=== PATIENT | female | born 1990 | race Hispanic/Latino ===

== ENCOUNTER 2019-07-29 00:51 | Emergency (ER) | payer SELFPAY ==
--- OUTSIDE RECORDS SUMMARY | 2019-07-29 00:53 | XMS REPORT ---
:1990 Author Organization [facility] t Address [address] [place] [address] Care Team Providers Name Role Phone Unavailable Unavailable Unavailable Problems This patient has no known problems. Allergies, Adverse Reactions, Alerts This patient has no known allergies or adverse reactions. Medications This patient has no known medications. Procedures This patient has no known procedures. Results This patient has no known results.
[2019-07-29] MEDS ORDERED: TETRACAINE HCL 0.5% 4ML OPTH ONE (01:49)
[2019-07-29] MEDS ORDERED: FLUORESCEIN SODIUM 1 MG/WRAP ONE (01:49)
--- NOTE | 2019-07-29 02:16 | EDPHYS ---
Physician Documentation [facility] Name: Karolyn Andrews Age: 28 yrs Sex: Female : 1990 Arrival Date: 07/29/2019 Time: 00:53 Bed 8 Private MD: ED Physician Irvin Saini HPI: 07/28 02:13 This 28 yrs old Female presents to ER via Ambulatory with complaints of Eye tw4 Pain. 02:13 The patient is experiencing pain, redness, The patient sustained an abrasion, to the tw4 left eye. Onset: The symptoms/episode began/occurred 2 week(s) ago. Duration: the symptoms are continuous. Aggravated by nothing. Alleviated by nothing. Associated signs and symptoms: Pertinent positives: None. Pertinent negatives: None. Patient wears soft contacts. Severity of symptoms: At their worst the symptoms were moderate in the emergency department the symptoms are unchanged. The patient has not experienced similar symptoms in the past. 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 - Social history:: Smoking status: Patient denies any tobacco usage or history of. ROS: 02:13 Cardiovascular: Negative for chest pain, palpitations, and edema, Respiratory: Negative tw4 for shortness of breath, cough, wheezing, and pleuritic chest pain, Abdomen/GI: Negative for abdominal pain, nausea, vomiting, diarrhea, and constipation, Back: Negative for injury and pain, MS/Extremity: Negative for injury and deformity, Skin: Negative for injury, rash, and discoloration, Neuro: Negative for headache, weakness, numbness, tingling, and seizure. 02:13 Eyes: Positive for pain, visual disturbance. Exam: 02:13 Constitutional: This is a well developed, well nourished patient who is awake, alert, tw4 and in no acute distress. 02:13 Eyes: Periorbital structures: appear normal, Pupils: equal, round, and reactive to light and accomodation, Extraocular movements: intact throughout, Conjunctiva: injected, in the left eye, Corneas: abrasion, that is small, at 3 o'clock, a fluorescein strip employed to appreciate the findings, Sclera: no appreciated abnormality, Anterior chamber: normal. Vital Signs: 01:08 BP 87 / 59; Pulse 94; Resp 16; Temp 98.6; Pulse Ox 96% on R/A; Weight 54.43 kg; Height vc 5 ft. 0 in. (152.40 cm); Pain 10/10; 02:05 BP 91 / 55; Pulse 82; Resp 16; Temp 98.6(O); Pulse Ox 100% on R/A; jb4 02:38 BP 93 / 57; Pulse 82; Resp 16; Pulse Ox 98% on R/A; Pain 4/10; jb4 01:08 Body Mass Index 23.44 (54.43 kg, 152.40 cm) vc Visual Acuity: 01:30 Left Eye Visual acuity 20/200, Pupil size 4 mm, Normal, React To Light, Reactive To jb4 Accomodation; Right Eye Visual acuity 20/100, Pupil size 4 mm, Normal, React To Light, Reactive To Accomodation; Both Eyes Visual acuity 20/50; Without Lenses; MDM: 01:28 Patient medically screened. tw4 02:13 Differential diagnosis: Corneal abrasion of left eye. Corneal ulcer of Foreign body in. tw4 Data reviewed: vital signs, nurses notes. Counseling: I had a detailed discussion with the patient and/or guardian regarding: the historical points, exam findings, and any diagnostic results supporting the discharge/admit diagnosis. 07/28 01:50 Order name: Eye Tray; Complete Time: 01:50 jb4 Administered Medications: 01:48 Drug: Tetracaine Drops 0.5 % 2 drops Route: Ophthalmic; Site: left eye; jb4 02:10 Follow up: Response: No adverse reaction; Pain is decreased jb4 02:05 Drug: Fluorescein Strip 1 strip Route: Ophthalmic; Site: left eye; jb4 02:30 Follow up: Response: No adverse reaction jb4 02:30 Drug: Gentamicin Drops 0.3 % 2 drops Route: Ophthalmic; Site: left eye; jb4 02:41 Follow up: Response: No adverse reaction jb4 Disposition: 07/29/19 02:15 Discharged to Home. Impression: Injury of conjunctiva and corneal abrasion without foreign body, left eye. - Condition is Stable. - Discharge Instructions: Corneal Abrasion, [id number]. - Prescriptions for Gentamicin 0.3 % Ophthalmic Drops - instill 1 drop by OPHTHALMIC route every 4 hours for 7 days; 1 bottle. - Medication Reconciliation Form, Thank You Letter, Antibiotic Education, Prescription Opioid Use form. - Follow up: Private Physician; When: Upon discharge from the Emergency Department; Reason: Recheck today's complaints, Continuance of care, Re-evaluation by your physician. Follow up: Anand Molina MD; When: Upon discharge from the Emergency Department; Reason: Recheck today's complaints, Continuance of care, Re-evaluation by your physician. - Problem is new. - Symptoms are unchanged. Signatures: Shamir Mckeon RN RN jb4 Irvin Saini MD MD tw4 Jessy Klein RN RN vc Corrections: (The following items were deleted from the chart) 02:42 02:15 07/29/2019 02:15 Discharged to Home. Impression: Injury of conjunctiva and jb4 corneal abrasion without foreign body, left eye. Condition is Stable. Forms are Medication Reconciliation Form, Thank You Letter, Antibiotic Education, Prescription Opioid Use. Follow up: Private Physician; When: Upon discharge from the Emergency Department; Reason: Recheck today's complaints, Continuance of care, Re-evaluation by your physician. Follow up: Anand Molina; When: Upon discharge from the Emergency Department; Reason: Recheck today's complaints, Continuance of care, Re-evaluation by your physician. Problem is new. Symptoms are unchanged. tw4
--- NOTE | 2019-07-29 02:16 | ER ---
Nurse's Notes [facility] Name: Karolyn Andrews Age: 28 yrs Sex: Female : 1990 Arrival Date: 07/29/2019 Time: 00:53 Bed 8 Private MD: Diagnosis: Injury of conjunctiva and corneal abrasion without foreign body, left eye Presentation: 07/28 01:08 Chief complaint: Patient states: "I think I have a contact in my left eye, I don't vc think it is pink eye because its been 2 weeks. I can't even see out of it because it hurts so bad.". Coronavirus screen: Proceed with normal triage. Patient denies a cough. Patient reports shortness of breath or difficulty breathing. Patient denies measured and/or subjective temperature greater than 100.4F prior to today's visit. Patient denies travel on a cruise ship or to a country the [facility] currently lists as an affected area. Patient denies contact with known and/or suspected case of COVID-19. Ebola Screen: No symptoms or risks identified at this time. Mechanism of Injury: No Mechanism of Injury. The patient reports a positive loss of vision. The patient's loss of vision began gradually 2 weeks ago. Initial Sepsis Screen: Does the patient meet any 2 criteria? No. Patient's initial sepsis screen is negative. Does the patient have a suspected source of infection? No. Patient's initial sepsis screen is negative. Risk Assessment: Do you want to hurt yourself or someone else? Patient reports no desire to harm self or others. Onset of symptoms is unknown. 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 - Social history:: Smoking status: Patient denies any tobacco usage or history of. Screenin:17 Abuse screen: Denies threats or abuse. Nutritional screening: No deficits noted. vc Tuberculosis screening: No symptoms or risk factors identified. Fall Risk None identified. Assessment: 01:30 General: Appears in no apparent distress. uncomfortable, Behavior is calm, cooperative, jb4 appropriate for age. Pain: Complains of pain in left eye Pain does not radiate. Pain currently is 10 out of 10 on a pain scale. Quality of pain is described as burning, Pain began 2 weeks ago Is continuous. Neuro: Level of Consciousness is awake, alert, obeys commands, Oriented to person, place, time, situation. Cardiovascular: Patient's skin is warm and dry. Respiratory: Airway is patent Respiratory effort is even, unlabored, Respiratory pattern is regular, symmetrical. GI: No signs and/or symptoms were reported involving the gastrointestinal system. : No signs and/or symptoms were reported regarding the genitourinary system. EENT: Eyes Left eye appears reddened. . Sclera/Cornea are clear in outer aspect of conjuctiva of left eye are reddened in iris of left eye and inner aspect of conjunctiva of left eye. Derm: Skin is intact, Skin is pink, warm \\T\\ dry. Musculoskeletal: Circulation, motion, and sensation intact. Range of motion: intact in all extremities. 02:20 Reassessment: Patient appears in no apparent distress at this time. Patient and/or jb4 family updated on plan of care and expected duration. Pain level reassessed. Patient is alert, oriented x 3, equal unlabored respirations, skin warm/dry/pink. Pt reports feeling weak and light headed. Reports feeling short of breath and having chest pain for the past two weeks. Reports feeling weak and light headed tonight. Request to be examined in ED. Provider notified, no new orders at this time. 02:38 Reassessment: Patient appears in no apparent distress at this time. Patient and/or jb4 family updated on plan of care and expected duration. Pain level reassessed. Patient is alert, oriented x 3, equal unlabored respirations, skin warm/dry/pink. PT currently denying dizziness, SOB, chest pain, or weakness. Reports vision in left eye has cleared up some and has improved. Lungs CTA MERVIN. PT asked if she felt well enough to go home or if she needed to stay, pt states " No my ride is here, I am okay. I think I am fine, I am going to go home and go see my doctor." Verbalized understanding of d/c and follow up instructions. Ambulated out of ED with steady gait. Patient states feeling better. Vital Signs: 01:08 BP 87 / 59; Pulse 94; Resp 16; Temp 98.6; Pulse Ox 96% on R/A; Weight 54.43 kg; Height vc 5 ft. 0 in. (152.40 cm); Pain 10/10; 02:05 BP 91 / 55; Pulse 82; Resp 16; Temp 98.6(O); Pulse Ox 100% on R/A; jb4 02:38 BP 93 / 57; Pulse 82; Resp 16; Pulse Ox 98% on R/A; Pain 4/10; jb4 01:08 Body Mass Index 23.44 (54.43 kg, 152.40 cm) vc Visual Acuity: 01:30 Left Eye Visual acuity 20/200, Pupil size 4 mm, Normal, React To Light, Reactive To jb4 Accomodation; Right Eye Visual acuity 20/100, Pupil size 4 mm, Normal, React To Light, Reactive To Accomodation; Both Eyes Visual acuity 20/50; Without Lenses; ED Course: 00:53 Patient arrived in ED. cl3 01:16 Triage completed. vc 01:17 Arm band placed on right wrist. vc 01:28 Irvin Saini MD is Attending Physician. tw4 01:30 Patient has correct armband on for positive identification. Bed in low position. Call jb4 light in reach. Side rails up X 1. Pulse ox on. NIBP on. 01:34 Shamir Mckeon, RN is Primary Nurse. jb4 02:00 Assist provider with eye exam of left eye. using fluorescein stain, Performed by [facility] Irvin Saini MD Patient tolerated well. 02:15 Anand Molina MD is Referral Physician. tw4 02:41 Patient did not have IV access during this emergency room visit. 4 Administered Medications: 01:48 Drug: Tetracaine Drops 0.5 % 2 drops Route: Ophthalmic; Site: left eye; jb4 02:10 Follow up: Response: No adverse reaction; Pain is decreased jb4 02:05 Drug: Fluorescein Strip 1 strip Route: Ophthalmic; Site: left eye; jb4 02:30 Follow up: Response: No adverse reaction jb4 02:30 Drug: Gentamicin Drops 0.3 % 2 drops Route: Ophthalmic; Site: left eye; jb4 02:41 Follow up: Response: No adverse reaction jb4 Outcome: 02:15 Discharge ordered by . tw4 02:41 Discharged to home ambulatory, with friend. jb4 02:41 Condition: stable 02:41 Discharge instructions given to patient, Instructed on discharge instructions, follow up and referral plans. medication usage, Demonstrated understanding of instructions, follow-up care, medications, Prescriptions given X 1. 02:42 Patient left the ED. jb4 Signatures: Shamir Mckeon RN RN stu4 Irvin Saini MD MD tw4 Aletha Tidwell cl3 Jessy Klein RN RN vc Corrections: (The following items were deleted from the chart) 02:24 02:20 Reassessment: Patient appears in no apparent distress at this time. Patient jb4 and/or family updated on plan of care and expected duration. Pain level reassessed. Patient is alert, oriented x 3, equal unlabored respirations, skin warm/dry/pink. Pt reports feeling weak and light headed. Reports feeling short of breath and having chest pain for the past two weeks. Request to be examined in ED. Provider notified. jb4 02:58 02:20 Reassessment: Patient appears in no apparent distress at this time. Patient jb4 and/or family updated on plan of care and expected duration. Pain level reassessed. Patient is alert, oriented x 3, equal unlabored respirations, skin warm/dry/pink. Pt reports feeling weak and light headed. Reports feeling short of breath and having chest pain for the past two weeks. Reports feeling weak and light headed tonight. Request to be examined in ED. Provider notified. jb4 02:58 02:38 Reassessment: Patient appears in no apparent distress at this time. Patient jb4 and/or family updated on plan of care and expected duration. Pain level reassessed. Patient is alert, oriented x 3, equal unlabored respirations, skin warm/dry/pink. PT currently denying dizziness, SOB, chest pain, or weakness. Reports vision in left eye has cleared up some and has improved. Lungs CTA MERVIN. Verbalized understanding of d/c and follow up instructions. Ambulated out of ED with steady gait. Patient states feeling better. jb4
[2019-07-29] MEDS ORDERED: GENTAMICIN 0.3% OPTH DROP 5ML ONE (02:33)
== END 2019-07-29 02:42 | disposition home or self-care (01) ==
LOC: ER 00:51
DX: S05.02XA Injury of conjunctiva and corneal abrasion without foreign body, left eye, initial encounter (principal)
CPT/HCPCS: 99284